=== PATIENT | female | born 2000 | race African-American/Black ===

== ENCOUNTER 2020-12-21 20:33 | Inpatient (IN) ==
[2020-12-21] MEDS ORDERED: ONDANSETRON 4 MG/2 ML VIAL IV PRN (20:57)
[2020-12-21] MEDS ORDERED: LACTATED RINGERS 500 ML IV PRN (20:57)
[2020-12-21] MEDS ORDERED: LACTATED RINGERS 250 ML IV ONE (20:57)
[2020-12-21] MEDS ORDERED: LACTATED RINGERS 1,000 ML IV SCH (21:00)
[2020-12-21 21:21] LABS: Basophils % 0.2 % (0.0-0.8); Eosinophils # 0.2 10*3/uL (0.0-0.87); Eosinophils % 1.6 % (0.00-10.9); Hematocrit 31.8 VOL% (35.7-47.0); Hemoglobin 9.6 GM/DL (12.0-16.0); Immature Granulocytes % 0.4 %; Immature Granulocytes Absolute 0.04 #; Lymphocytes # 1.9 10*3/uL (1.4-4.0); Lymphocytes % 20.4 % (21.3-54.2); Mean Corpuscular HGB Conc 30.2 GM/DL (32-36); Mean Corpuscular Volume 90.1 FL (87-102); Mean Platelet Volume 8.9 FL (9.6-12.0); Monocytes % 8.8 % (1.7-12.7); NRBC # 0.04 10*3/uL; Neutrophils % 68.6 % (38.7-73.9); Platelet Count 407 T/CUMM (130-400); Red Blood Count 3.53 MC/CUMM (3.8-5.5); Red Cell Distribution Width 15.5 % (9.3-17.3); White Blood Count 9.4 T/CUMM (4-12)
[2020-12-21] MEDS ORDERED: AMPICILLIN INJ 2,000 MG in SODIUM CHLORIDE 0.9% 100 ML IV ONE (21:30)
[2020-12-22] MEDS ORDERED: AMPICILLIN INJ 1,000 MG in SODIUM CHLORIDE 0.9% 100 ML IV SCH (01:30)
[2020-12-22] MEDS ORDERED: MEPERIDINE 50 MG/1 ML VIAL IV PRN (02:57)
[2020-12-22] MEDS ORDERED: BUTORPHANOL 2 MG/ML VIAL IV PRN (02:57)
[2020-12-22] MEDS ORDERED: OXYTOCIN/LR 20 UNIT/1,000 ML BAG IV ONE ×4 (04:02→05:58)
[2020-12-22] MEDS ORDERED: miSOPROStoL 200 MCG TABLET ONE (04:06)
[2020-12-22] MEDS ORDERED: METHYLERGONOVINE 0.2 MG/1 ML AMP ONE (04:06)
[2020-12-22] MEDS ORDERED: SODIUM CHLORIDE 0.9% 0 ML IV ONE (04:06)
[2020-12-22] MEDS ORDERED: TRANEXAMIC ACID 1,000 MG/10 ML VIAL ONE (04:06)
[2020-12-22] MEDS ORDERED: CARBOPROST TROMETHAMINE 250 MCG/ML AMP IM ONE (04:07)
[2020-12-22 05:05] LABS: Cord Venous Blood HCO3 22.8 MMOL/L; Cord Venous Blood PCO2 45.1 MMHG; Cord Venous Blood PO2 38.1 MMHG
[2020-12-22] MEDS ORDERED: IBUPROFEN 800 MG TABLET PO PRN (20:49)
[2020-12-22] MEDS ORDERED: ACETAMINOPHEN/CODEINE 300-30 MG TABLET PO PRN ×2 (20:49)
[2020-12-22] MEDS: DOCUSATE SODIUM 100 MG CAPSULE PO SCH (21:55)
[2020-12-23 05:43] LABS: Basophils % 0.1 % (0.0-0.8); Eosinophils # 0.1 10*3/uL (0.0-0.87); Eosinophils % 0.7 % (0.00-10.9); Hematocrit 25.9 VOL% (35.7-47.0); Hemoglobin 8.1 GM/DL (12.0-16.0); Immature Granulocytes % 0.8 %; Immature Granulocytes Absolute 0.15 #; Lymphocytes # 2.9 10*3/uL (1.4-4.0); Lymphocytes % 15.8 % (21.3-54.2); Mean Corpuscular HGB Conc 31.3 GM/DL (32-36); Mean Corpuscular Volume 88.4 FL (87-102); Mean Platelet Volume 8.7 FL (9.6-12.0); Monocytes % 5.1 % (1.7-12.7); NRBC # 0.03 10*3/uL; Neutrophils % 77.5 % (38.7-73.9); Platelet Count 336 T/CUMM (130-400); Red Blood Count 2.93 MC/CUMM (3.8-5.5); Red Cell Distribution Width 15.3 % (9.3-17.3)
[2020-12-23] MEDS: IRON (CARBONYL)/VIT C/B12/FA TABLET PO SCH (08:31)
[2020-12-23] MEDS: DOCUSATE SODIUM 100 MG CAPSULE PO SCH ×2 (19:36→21:35)
[2020-12-24] MEDS: IRON (CARBONYL)/VIT C/B12/FA TABLET PO SCH (09:00)
[2020-12-24 09:29] VITALS: BP 118/66
== END 2020-12-24 12:20 | disposition home or self-care (01) | DRG 807 ==
LOC: N.LDOUT 20:33 → N.LD 20:38 → N.OB 12-22 08:42
PROVIDERS: ADMIT Obstetrics & Gynecology; ATTEND Specialist